=== PATIENT | female | born 1965 | race Caucasian/White ===

== ENCOUNTER 2019-03-25 09:29 | Day surgery (SDC) | payer MEDICAID ==
[2019-03-25] MEDS ORDERED: BUPIVACAINE /PF 0.25% 30 ML VIAL INJ ONE (10:03)
[2019-03-25] MEDS ORDERED: LIDOCAINE 2%, 20 ML MDV ONE (10:03)
[2019-03-25] MEDS ORDERED: methylPREDNISolone ACETATE 40 MG/ML ONE (10:03)
[2019-03-25] MEDS ORDERED: MIDAZOLAM HCL 5 MG/5 ML VIAL ONE ×2 (10:03→11:36)
[2019-03-25] MEDS ORDERED: DIPHENHYDRAMINE INJ 50 MG/ML VIAL ONE (10:03)
[2019-03-25 17:27] VITALS: BP_SYST 150
== END 2019-03-25 13:17 | disposition home or self-care (01) ==
LOC: SOR 09:29 → SMU 10:05 → SDS 13:17
PROVIDERS: ATTEND Internal Medicine
DX: M47.896 Other spondylosis, lumbar region (principal); M54.5 Low back pain; E11.9 Type 2 diabetes mellitus without complications; E78.5 Hyperlipidemia, unspecified; I10 Essential (primary) hypertension; Z79.899 Other long term (current) drug therapy
CPT/HCPCS: 64493; 64494; 82962; J1030; J1200; J2001; J2250; J3490; 76000

== ENCOUNTER 2020-03-30 08:17 | Day surgery (SDC) | payer OTHER, SELFPAY ==
--- NOTE | 2020-03-29 14:06 | NUR ---
Patient called and notified about her "Not Detected" COVID-19 laboratory test result and instructed to follow the preventive measures ([facility]) and she verbalizes understanding.
[~2020-03-30] VITALS: Ht 160 cm; Wt 78.0 kg
[2020-03-30] MEDS ORDERED: MIDAZOLAM HCL 2 MG/2 ML VIAL (VERSED) ONE (10:03)
[2020-03-30] MEDS ORDERED: DIPHENHYDRAMINE INJ 50 MG/ML VIAL ONE (10:05)
[2020-03-30 10:10] VITALS: BP_SYST 135
[2020-03-30] MEDS ORDERED: MORPHINE 2 MG/ML INJ. SYRINGE IVP ONE (11:35)
[2020-03-30] MEDS ORDERED: MORPHINE SULFATE 10 MG/ML VIAL IVP ONE (11:45)
[2020-03-30] MEDS ORDERED: MORPHINE SULFATE 10 MG/ML VIAL ONE (12:06)
[2020-03-30] MEDS ORDERED: methylPREDNISolone ACETATE 40 MG/ML ONE (13:17)
[2020-03-30] MEDS ORDERED: BUPIVACAINE /PF 0.25% 30 ML VIAL INJ ONE (13:17)
[2020-03-30] MEDS ORDERED: LIDOCAINE 2%, 20 ML MDV ONE (13:17)
== END 2020-03-30 19:41 | disposition home or self-care (01) ==
LOC: SDS 08:17 → SMU 08:17 → SDS 19:41
PROVIDERS: ATTEND Obstetrics & Gynecology
DX: M54.16 Radiculopathy, lumbar region (principal); M62.838 Other muscle spasm; M53.3 Sacrococcygeal disorders, not elsewhere classified; E11.9 Type 2 diabetes mellitus without complications; E78.5 Hyperlipidemia, unspecified; I10 Essential (primary) hypertension; G89.4 Chronic pain syndrome; Z11.59 Encounter for screening for other viral diseases
CPT/HCPCS: 62323; J1030; J1200; J2001; J2270; J3465; J3490; U0003; 76000

== ENCOUNTER 2021-08-04 09:23 | Day surgery (SDC) | payer OTHER, SELFPAY ==
[~2021-08-04] VITALS: Ht 160 cm; Wt 78.5 kg
[2021-08-04] MEDS ORDERED: IOPAMIDOL 50 ML VIAL IV ONE (09:24)
[2021-08-04] MEDS ORDERED: BUPIVACAINE /PF 0.25% 30 ML VIAL INJ ONE (09:24)
[2021-08-04] MEDS ORDERED: LIDOCAINE 2%, 20 ML MDV INJ ONE (09:24)
[2021-08-04] MEDS ORDERED: methylPREDNISolone ACETATE 80 MG/ML IM ONE (09:24)
[2021-08-04] MEDS ORDERED: MIDAZOLAM HCL 5 MG/5 ML VIAL ONE (12:25)
[2021-08-04] MEDS ORDERED: DIPHENHYDRAMINE INJ 50 MG/ML VIAL ONE (12:26)
[2021-08-04 16:51] VITALS: BP_SYST 117
== END 2021-08-04 16:00 | disposition home or self-care (01) ==
LOC: SDS 09:23 → STU 11:13 → SDS 16:00
PROVIDERS: ATTEND Internal Medicine
DX: M51.16 Intervertebral disc disorders with radiculopathy, lumbar region (principal); G89.29 Other chronic pain; M62.838 Other muscle spasm; M53.3 Sacrococcygeal disorders, not elsewhere classified; M25.511 Pain in right shoulder; E11.9 Type 2 diabetes mellitus without complications; I10 Essential (primary) hypertension; E78.5 Hyperlipidemia, unspecified; M54.2 Cervicalgia; Z79.899 Other long term (current) drug therapy; Z20.822 Contact with and (suspected) exposure to COVID-19
CPT/HCPCS: 36415; 62323; 82962; 87426; J1200; J2250; 76000; J1040; J2001; J3490; Q9967

== ENCOUNTER 2022-01-17 07:14 | Day surgery (SDC) | payer OTHER ==
[~2022-01-17] VITALS: Ht 160 cm; Wt 78.9 kg
[2022-01-17] MEDS ORDERED: IOHEXOL 300 mgI/mL, 50 mL INFUS..BTL IV ONE (08:40)
[2022-01-17] MEDS ORDERED: BUPIVACAINE /PF 0.25% 30 ML VIAL INJ ONE (08:40)
[2022-01-17] MEDS ORDERED: LIDOCAINE 2%, 20 ML MDV ONE (08:40)
[2022-01-17] MEDS ORDERED: DIPHENHYDRAMINE INJ 50 MG/ML VIAL ONE (08:40)
[2022-01-17] MEDS ORDERED: MIDAZOLAM HCL 5 MG/5 ML VIAL ONE (08:40)
[2022-01-17] MEDS ORDERED: methylPREDNISolone ACETATE 40 MG/ML ONE (08:40)
[2022-01-17 10:05] VITALS: BP_SYST 105
== END 2022-01-17 10:04 | disposition home or self-care (01) ==
LOC: SDS 07:14 → SMU 07:16 → SDS 10:04
PROVIDERS: ATTEND Internal Medicine
DX: M51.16 Intervertebral disc disorders with radiculopathy, lumbar region (principal); M62.838 Other muscle spasm; M25.511 Pain in right shoulder; M54.2 Cervicalgia; G89.4 Chronic pain syndrome; Z79.899 Other long term (current) drug therapy; Z20.822 Contact with and (suspected) exposure to COVID-19
CPT/HCPCS: 36415 ×2; 62323; 82962; 87426; 87635; J1030; J1200; J2001; J2250; J3490; Q9967; 76000

== ENCOUNTER 2023-02-13 07:15 | Day surgery (SDC) | payer OTHER ==
[~2023-02-13] VITALS: Ht 160 cm; Wt 81.6 kg
[2023-02-13] MEDS ORDERED: methylPREDNISolone ACETATE 40 MG/ML ONE (08:40)
[2023-02-13] MEDS ORDERED: IOHEXOL 300 mgI/mL, 50 mL INFUS..BTL IV ONE (08:40)
[2023-02-13] MEDS ORDERED: LIDOCAINE 2%, 20 ML MDV ONE (08:40)
[2023-02-13] MEDS ORDERED: NORMAL SALINE 10 ML VIAL ONE (08:40)
[2023-02-13] MEDS ORDERED: MIDAZOLAM HCL 5 MG/5 ML VIAL ONE (08:40)
[2023-02-13] MEDS ORDERED: DIPHENHYDRAMINE INJ 50 MG/ML VIAL ONE (08:41)
[2023-02-13] MEDS: fentaNYL CITRATE/PF 100 MCG/2 ML AMP ONE ×2 (09:32→09:35)
[2023-02-13] MEDS ORDERED: MORPHINE 2 MG/ML INJ. SYRINGE IVP ONE (11:15)
[2023-02-13] MEDS ORDERED: ONDANSETRON HCL 4 MG/2 ML VIAL IVP ONE (11:15)
[2023-02-13] MEDS ORDERED: MORPHINE SULFATE 10 MG/ML VIAL ONE (11:15)
[2023-02-13] MEDS ORDERED: ONDANSETRON HCL 4 MG/2 ML VIAL ONE (11:15)
[2023-02-13 15:53] VITALS: BP_SYST 102
== END 2023-02-13 14:05 | disposition home or self-care (01) ==
LOC: SDS 07:15 → SMU 07:20 → SDS 14:05
PROVIDERS: ATTEND Internal Medicine
DX: M51.16 Intervertebral disc disorders with radiculopathy, lumbar region (principal); M51.9 Unspecified thoracic, thoracolumbar and lumbosacral intervertebral disc disorder; M62.838 Other muscle spasm; M53.3 Sacrococcygeal disorders, not elsewhere classified; M25.511 Pain in right shoulder; M54.2 Cervicalgia; G89.4 Chronic pain syndrome; I10 Essential (primary) hypertension; E11.9 Type 2 diabetes mellitus without complications; E78.5 Hyperlipidemia, unspecified; Z79.899 Other long term (current) drug therapy; Z20.822 Contact with and (suspected) exposure to COVID-19
CPT/HCPCS: 62323; 82962; J1200; J2001; J1030; J2250; J2405; J3010; J2270; Q9967; 76000